=== PATIENT | male | born 1975 | race American Indian/Alaskan Native ===

== ENCOUNTER 2020-02-19 09:13 | Emergency (ER) | payer BC, OTHER ==
[~2020-02-19] VITALS: Ht 177.8 cm; Wt 70.3 kg
--- NOTE | ~2020-02-19 | EKG ---
[facility] [address] [facility] [place], [place] [address] Draft EK completed, results pending confirmation PATIENT NAME: SANGEETA NESBITT Electrocardiogram DATE OF : 73 PHYSICIAN: PRELIMINARY REPORT #: [id number] REPORT IS CONFIDENTIAL AND NOT TO BE RELEASED WITHOUT AUTHORIZATION
--- NOTE | 2020-02-19 16:01 | EKG ---
[facility] [address] [facility] [place], [place] [address] Signed Normal sinus rhythm Normal ECG No previous ECGs available Confirmed by NATALY FAN MD ([id number]) on 02/19/2020 4:01:15 PM Electronically Signed By: NATALY FAN MD 02/19/20 1601 PATIENT NAME: SANGEETA NESBITT Electrocardiogram DATE OF : 73 PHYSICIAN: NATALY FAN MD REPORT #: [id number] REPORT IS CONFIDENTIAL AND NOT TO BE RELEASED WITHOUT AUTHORIZATION
== END 2020-02-19 11:20 | disposition home or self-care (01) ==
LOC: ED 09:13
DX: B34.9 Viral infection, unspecified (principal); F17.200 Nicotine dependence, unspecified, uncomplicated; Z20.828 Contact with and (suspected) exposure to other viral communicable diseases
CPT/HCPCS: 71046; 80053; 85025; 93005; 93010; 99285-25; C9803; U0002